=== PATIENT | female | born 1990 | race Caucasian/White ===

== ENCOUNTER 2024-04-19 08:34 | Outpatient (AMB) | payer OTHER, SELFPAY ==
[2024-04-19 08:37] VITALS: BP 110/62; PULSE 75; O2SAT 98; BMI 23.2
--- NOTE | 2024-04-19 08:37 | A.OFFVIS_ITS ---
Vital Signs 04/19/24 08:37 Height 5 ft 2 in Weight 126 lb 12.253 oz BMI 23.2 BP 110/62 Blood Pressure Location Lt brachial Position Sitting Pulse 75 Pulse Source Pulse Oximeter Pulse Oximetry (%) 98 Oxygen Delivery Method Room Air Intake Visit Reasons: //RECORDS RECEIVED Intake Note: Patient presents today for . Allergies Penicillins Allergy (Mild, Verified 04/19/24 08:39) Hives HPI Comments Details: Feels well. No flares. Endometrial bx revealed endometritis treated with 2 week course anx. She had repeat bx with results pending. Lab workup for infertility revealed protein S was mildly low. I reviewed patient's lab results on her phone, which only revealed lab results that were performed at [facility]. APS panel was not reported but patient reports that it was checked. Records from [facility] reviewed. 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 She was initially diagnosed with seropositive rheumatoid arthritis and was on hydroxychloroquine from 04/20/2022 03/20/2021. Her evaluation with me revealed clinical presentation of spondyloarthritis rather than rheumatoid arthritis. Due to patient's wishes of , she was started on sulfasalazine 12/18/2020 then Cimzia 03/20/2021. She has had recurrent loss x3 first-trimester and follows with fertility clinic in [place] (Dr. Melia Riddle). While on Cimzia she tested positive for lupus anticoagulant then negative when off of Cimzia for 3 months, which suggests that the positive antibody is drug-induced. Dr. Riddle is concerned that there may be a pathologic roll for the positive antibody contributing to recurrent miscarriage. They are considering trialing low-dose prednisone for 1st trimester then tapering off and changing low-dose aspirin to Lovenox for primary prevention of loss. Review of Systems Const All systems reviewed & are unremarkable except as noted in HPI and below Physical Exam Vital Signs: Last Vital Signs Pulse 75 04/19/24 08:37 BP 110/62 04/19/24 08:37 Pulse Ox 98 04/19/24 08:37 Oxygen Delivery Method Room Air 04/19/24 08:37 BMI result Body Mass Index 23.2 Const General: cooperative and healthy appearing Resp Auscultation: clear to auscultation bilaterally Cardio Rate: regular rate Rhythm: regular rhythm Heart sounds: S1 normal heart sound present and S2 normal heart sound present Assessment & Plan Assessment & Plan (1) Ankylosing spondylitis: Comment: Stable on current regimen. Endometrial biopsy results are pending to confirm if she has chronic endometritis. Patient is aware that she will be holding immunosuppressive therapies sulfasalazine and Cimzia if she is being treated for an infection with antibiotic. Code(s): M45.9 - Ankylosing spondylitis of unspecified sites in spine Category: Medical Plan: Continue cimzia month SC injection Continue SSZ 1500mg BID Requesting labs performed at [facility] last month for disease and drug monitoring Labs due in 2 months. Labs ordered. She will call insurance to find out if she is able to have labs at [facility]. In the past her insurance has required her to have labs done at [facility]. Return to clinic 3 months (2) Other skilled nursing (current) drug therapy: Code(s): Z79.899 - Other skilled nursing (current) drug therapy Category: Medical Plan: See above Plan . Orders: Orders Aspartate Amino Transferase 2 Months M45.9 - Ankylosing spondylitis of unspecified sites in spine, Z79.01 - penitentiary (current) use of anticoagulants C Reactive Protein 2 Months M45.9 - Ankylosing spondylitis of unspecified sites in spine, Z79.01 - shower enclosure installer (current) use of anticoagulants Creatinine 2 Months M45.9 - Ankylosing spondylitis of unspecified sites in spine, Z79.01 - shower enclosure installer (current) use of anticoagulants Erythrocyte Sedimentation Rate 2 Months M45.9 - Ankylosing spondylitis of unspecified sites in spine, Z79.01 - penitentiary (current) use of anticoagulants Hepatitis B,C Profile 2 Months M45.9 - Ankylosing spondylitis of unspecified sites in spine, Z79.01 - penitentiary (current) use of anticoagulants T Spot TB 2 Months M45.9 - Ankylosing spondylitis of unspecified sites in spine, Z79.01 - penitentiary (current) use of anticoagulants Alanine Aminotransferase 2 Months M45.9 - Ankylosing spondylitis of unspecified sites in spine, Z79.01 - shower enclosure installer (current) use of anticoagulants Complete Blood Count Auto Diff 2 Months M45.9 - Ankylosing spondylitis of unspecified sites in spine, Z79.01 - shower enclosure installer (current) use of anticoagulants Medications: New certolizumab pegol (Cimzia) administer as 2 equally divided doses at 2 different sites in abdomen or thigh 400 mg (2 mL) subcut Q4W 1 ea 2RF Coding Level of Care Code Est Pt Level 4 (78922) Complex EM visit Add On G2211 Diagnoses Ankylosing spondylitis M45.9 Other associate dean (current) drug therapy Z79.899
== END 2024-04-19 09:16 | disposition home or self-care (01) ==
PROVIDERS: PCP Internal Medicine; Visit Provider Internal Medicine Rheumatology
DX: M45.9 Ankylosing spondylitis of unspecified sites in spine (principal); Z79.899 Other long term (current) drug therapy
CPT/HCPCS: 99214

== ENCOUNTER → 2024-04-19 08:34 | Outpatient (BNVA) | payer OTHER, SELFPAY | PROVIDERS: PCP Internal Medicine; Visit Provider Internal Medicine Rheumatology | DX: M45.9 Ankylosing spondylitis of unspecified sites in spine (principal); Z79.899 Other long term (current) drug therapy | CPT/HCPCS: 99212 ==

== ENCOUNTER 2024-07-27 13:16 | Outpatient (AMB) | payer OTHER, SELFPAY ==
--- NOTE | 2024-07-27 13:20 | MHC.OFFVIS ---
Vital Signs 07/27/24 13:21 Height 5 ft 2 in Weight 125 lb 7.088 oz BMI 22.9 BP 98/70 Blood Pressure Location Lt brachial Position Sitting Pulse 79 Pulse Source Pulse Oximeter Pulse Oximetry (%) 98 Oxygen Delivery Method Room Air Intake Visit Reasons: follow up 3mon Intake Note: Patient presents for follow up. Allergies Penicillins Allergy (Mild, Verified 07/27/24 13:21) Hives HPI HPI follow up 3mon: Details: She is doing well. No morning stiffness. No recent infections. Review of Systems Const All systems reviewed & are unremarkable except as noted in HPI and below Physical Exam Vital Signs: Last Vital Signs Pulse 79 07/27/24 13:21 BP 98/70 07/27/24 13:21 Pulse Ox 98 07/27/24 13:21 Oxygen Delivery Method Room Air 07/27/24 13:21 BMI result Body Mass Index 22.9 Const Other: General: Comfortable CVS: RRR Respiratory: clear to auscultation bilaterally. Good respiratory effort Skin: No lesions seen MSK: No tenderness of any joint. No synovitis. Good biofuels technology manager strength. Good range of motion of upper extremities and lower extremities. Assessment & Plan Assessment & Plan (1) Ankylosing spondylitis: Comment: Stable on current regimen. Rheumatology history: HLA B27 positive. 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 Sulfasalazine started November 2020 to present. Cimzia started March 2021. She was initially diagnosed with seropositive rheumatoid arthritis. She was then placed on hydroxychloroquine April 2022 to March 2021 discontinued due to ineffectiveness and switch to Cimzia. 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 She had 10 month history of right buttocks pain in 2018 that self resolved. Later patient was found to have sacroiliitis right side with erosions on imaging. She has had positive lupus anticoagulant while on Cimzia, which was negative including rest of APLS panel when it was retested off of Cimzia confirming positive lupus anticoagulant was likely drug-induced (known side effect). When Cimzia was on hold for testing of lupus anticoagulant, she had flare-up of inflammatory back pain with elevated inflammatory markers responsive to prednisone course. 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 She has had a total of 3 negative lupus anticoagulant tests. Code(s): M45.9 - Ankylosing spondylitis of unspecified sites in spine Category: Medical Qualifiers: Ankylosing spondylitis location: sacral region Qualified Code(s): M45.8 - Ankylosing spondylitis sacral and sacrococcygeal region Plan: Continue cimzia month SC injection Continue SSZ 1500mg BID Labs for drug monitoring on high-risk medication up-to-date from June 2024. Labs for drug monitoring on high-risk medication are due every 3 months. Insurance requirement for labs to be done at [facility]. Patient has lab requisition. 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 Coding Level of Care Code Est Pt Level 5 (00303) Complex EM visit Add On G2211 Diagnoses Ankylosing spondylitis of sacral region M45.8 Ankylosing spondylitis location: sacral region Other equipment operator intermodal yard (current) drug therapy Z79.899 Time Spent (min) 40
[2024-07-27 13:21] VITALS: BP 98/70; PULSE 79; O2SAT 98; BMI 22.9
--- OUTSIDE RECORDS SUMMARY | 2024-07-27 16:16 | XMS_ITS | Continuity of Care Document ---
Author Organization [facility] Address [address] [place] [id number]- Care Team Providers Care Bottle Packer Name Role Phone Katy JenSunshine franco DO Primary Care Cipriano stout Encounter [facility] Date(s): 06/21/24 - 07/21/24 [facility] [address] [place] [id number] Attending Physician: Zandra Epstein Admitting Physician: Zandra Epstein Referring Physician: Zandra Epstein Encounter Type: Triage Allergies, Adverse Reactions, Alerts Substance Criticality Severity Reaction Reaction Severity Status penicillin Hives Active Medications aspirin 81 mg oral capsule 1 capsule = 81 mg, By Mouth, Every 24 hours, 0 Refills, Maintenance, 12/02/23 3:39:00 PM EDT, Partialfill upon patient request if the prescription is for a schedule II opioid drug. Start Date: 12/02/23 Status: Ordered Repeat number: 1 Cimzia 200 mg subcutaneous kit = 400 mg, Subcutaneous Infusion, 0 Refills, Maintenance, 09/08/22 6:40:00 AM EDT, Partial fill upon patient request if the prescription is for a schedule II opioid drug. Start Date: 09/08/22 Status: Ordered Repeat number: 1 Keflex Capsule 500 mg, By Mouth, 2 times a day, Maintenance, 12/18/23 8:50:00 AM EDT Start Date: 12/18/23 Status: Ordered Repeat number: 1 SulfaSALAZINE = 1,500 mg, By Mouth, 2 times a day, 0 Refills, Maintenance, 09/08/22 6:39:00 AM EDT, Partial fill upon patient request if the prescription is for a schedule II opioid drug. Start Date: 09/08/22 Status: Ordered Repeat number: 1 Problem List Condition Confirmation Course Effective Dates Status Health St atus Informant Ankylosing spondylitis Confirmed Active Rh negative status during Confirmed Active Social History Social History Type Response Smoking Status Never (less than 100 in lifetime) entered on: 06/07/21 Sex Sex Representation Female (finding) Patient Care team information Care Team Personnel Name: Sunshine Barnes DO Position: [facility] Physician - Primary Care Member Role: PCP Address: [address] [place] [address] Telecom: Name: Aracelis Jimenez MD Position: [facility] LICENSED AUDIOLOGIST MD Member Role: Lifetime LICENSED AUDIOLOGIST Physician Address: [address] [place] [address] Women's Health LICENSED AUDIOLOGIST [address] Telecom: Care Team Related Persons Name: TAWNY CROOK Insurance Providers Guarantor name: ROVERTO CROOK Health Plan Information #: 1 Payer: ORAL [facility] PPO Member Number: NA Policy Number: NA Group Number: NA
== END 2024-07-27 13:59 | disposition home or self-care (01) ==
PROVIDERS: PCP Internal Medicine; Visit Provider Internal Medicine Rheumatology
DX: M45.8 Ankylosing spondylitis sacral and sacrococcygeal region (principal); Z79.899 Other long term (current) drug therapy
CPT/HCPCS: 99214

== ENCOUNTER 2024-10-18 10:21 | Outpatient (AMB) | payer OTHER, SELFPAY ==
--- NOTE | 2024-10-18 10:23 | MHC.OFFVIS ---
Vital Signs 10/18/24 10:24 Height 5 ft 2 in Weight 132 lb 11.492 oz BMI 24.3 BP 100/70 Blood Pressure Location Lt brachial Position Sitting Pulse 84 Pulse Source Pulse Oximeter Pulse Oximetry (%) 100 Oxygen Delivery Method Room Air Intake Visit Reasons: 3 Months Intake Note: Patient presents for follow up. Accompanied by: Self / Same As Patient Allergies Penicillins Allergy (Mild, Verified 10/18/24 10:23) Hives HPI HPI 3 Months: Details: She is 14 weeks . She sees OB at [facility] Dr. Maharaj. She is on lovenox for prophylaxis. Protein C was elevated in workup. OB communicated with Hematology. She was on prednisone 10mg for the first 12 weeks per recommendations of OB team in [place]. At this time she is not experiencing joint pain, stiffness or joint swelling. R SI joint is sore when working. It occurs when she gets up from seated position and walks. Self-limited. Physical Exam Vital Signs: Last Vital Signs Pulse 84 10/18/24 10:24 BP 100/70 10/18/24 10:24 Pulse Ox 100 10/18/24 10:24 Oxygen Delivery Method Room Air 10/18/24 10:24 BMI result Body Mass Index 24.3 Const Other: General: Comfortable CVS: RRR Respiratory: clear to auscultation bilaterally. Good respiratory effort Skin: No lesions seen MSK: No tenderness of any joint. No synovitis. 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 Good range of motion of upper extremities and lower extremities. Assessment & Plan Assessment & Plan (1) Ankylosing spondylitis: Comment: Stable on current regimen. She has intermittent right SI joint pain, self-limited. She is 14 weeks on Lovenox for prophylaxis. Rheumatology history: HLA B27 positive. 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 Sulfasalazine started November 2020 to present. Cimzia started March 2021. She was initially diagnosed with seropositive rheumatoid arthritis. She was then placed on hydroxychloroquine April 2022 to March 2021 discontinued due to ineffectiveness and switch to Cimzia. 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 She had 10 month history of right buttocks pain in 2019 that self resolved. Later patient was found to have sacroiliitis right side with erosions on imaging. She has had positive lupus anticoagulant while on Cimzia, which was negative including rest of APLS panel when it was retested off of Cimzia confirming positive lupus anticoagulant was likely drug-induced (known side effect). When Cimzia was on hold for testing of lupus anticoagulant, she had flare-up of inflammatory back pain with elevated inflammatory markers responsive to prednisone course. 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 She has had a total of 3 negative lupus anticoagulant tests. Code(s): M45.9 - Ankylosing spondylitis of unspecified sites in spine Category: Medical Qualifiers: Ankylosing spondylitis location: sacral region Qualified Code(s): M45.8 - Ankylosing spondylitis sacral and sacrococcygeal region Plan: Continue cimzia month SC injection Continue SSZ 1500mg BID Labs for drug monitoring on high-risk medication up-to-date from August 2024. Labs for drug monitoring on high-risk medication are due every 3 months. Insurance requirement for labs to be done at [facility]. Lab requisitions have been reprinted for patient. Return to clinic 3 months (2) Other intermediate (current) drug therapy: Code(s): Z79.899 - Other intermediate (current) drug therapy Category: Medical Plan: See above Plan . Coding Level of Care Code Est Pt Level 4 (04389) Complex EM visit Add On G2211 Diagnoses Ankylosing spondylitis of sacral region M45.8 Ankylosing spondylitis location: sacral region Other continuous churn buttermaker (current) drug therapy Z79.899
[2024-10-18 10:24] VITALS: BP 100/70; PULSE 84; O2SAT 100; BMI 24.3
--- OUTSIDE RECORDS SUMMARY | 2024-10-18 11:34 | XMS_ITS | Continuity of Care Document ---
Author Organization [facility] Address [address] [place] [address], [address] [place] [address]- Care Team Providers Care Prevention Rn Name Role Phone Sunshine Barnes DO Primary Care Cipriano stout [id number] [employer] [address], [address] [place], [place] [address] Attending Physician: Aracelis Jimenez MD Referring Physician: Bhaskar Bergeron MD Encounter Type: Office Visit Allergies, Adverse Reactions, Alerts Substance Criticality Severity Reaction Reaction Severity Status penicillin Hives Active Medications Cimzia 200 mg subcutaneous kit = 400 mg, Subcutaneous Infusion, 0 Refills, Maintenance, 09/08/22 6:40:00 AM EDT, Partial fill upon patient request if the prescription is for a schedule II opioid drug. Start Date: 09/08/22 Status: Ordered Repeat number: 1 Lovenox 40 mg/0.4 mL injectable solution = 40 mg, Subcutaneous Injection, Daily, for 30 days, # 30 each, 6 Refills, Acute 05/05/25 1:30:00 PMEST, 10/07/24 1:30:00 PM EDT, [facility], Partial fill upon patient request if the prescription is for a schedule II opioid drug., 157, cm, 10/07/24 13:18:00 EDT, Height, 59.7, kg, 10/07/24 13:18:00 EDT, Dry Weight Start Date: 10/07/24 Stop Date: 05/05/25 Status: Ordered Quantity: 30.0 Unit: each Repeat number: 7 SulfaSALAZINE = 1,500 mg, By Mouth, 2 times a day, 0 Refills, Maintenance, 09/08/22 6:39:00 AM EDT, Partial fill upon patient request if the prescription is for a schedule II opioid drug. Start Date: 09/08/22 Status: Ordered Repeat number: 1 Problem List Condition Confirmation Course Effective Dates Status Health St atus Informant Penicillin allergy Confirmed Active Ankylosing spondylitis Confirmed Active resulting from assisted conception Confirmed Active Protein S deficiency Confirmed Active Rh negative status during Confirmed Active Vital Signs Most recent to oldest [Reference Range]: 1 Height 157 cm (10/07/24 1:18 PM) Weight 59.7 kg (10/07/24 1:18 PM) Body Mass Index [18.5-24.99 kg/m2] 24.22 kg/m2 (10/07/24 1:18 PM) Blood Pressure [90-138/55-84 mm Hg] 109/ 63mm Hg (10/07/24 1:18 PM) Blood pressure sites Arm, right (10/07/24 1:18 PM) Dry Weight 59.7 kg (10/07/24 1:18 PM) Weight Obtained Via Standing scale (10/07/24 1:18 PM) Dry Weight Obtained Via Standing scale (10/07/24 1:18 PM) Social History Social History Type Response Smoking Status Never (less than 100 in lifetime) entered on: 09/07/24 Sex Sex Representation Female (finding) Patient Care team information Care Team Personnel Name: Sunshine Barnes DO Position: [facility] Physician - Primary Care Member Role: PCP Address: [address] [place] [id number] [place] Telecom: Name: Aracelis Jimenez MD Position: [facility] MANAGER AGRICULTURAL Member Role: Lifetime MANAGER AGRICULTURAL Physician Address: [address] [place] [address] Women's [facility] [place] [address] YQ Telecom: Care Team Related Persons Name: TAWNY CROOK Insurance Providers Guarantor name: ROVERTO CROOK Health Plan Information #: 1 Payer: ORAL [facility] PPO Member Number: [id number] Policy Number: NA Group Number: [id number] Health Plan Information #: 2 Payer: ORAL [place] PPO Member Number: [id number] Policy Number: NA Group Number: [id number]
== END 2024-10-18 11:17 | disposition home or self-care (01) ==
LOC: HO.RHES 10:22
PROVIDERS: PCP Internal Medicine; Visit Provider Internal Medicine Rheumatology
DX: M45.8 Ankylosing spondylitis sacral and sacrococcygeal region (principal); Z79.899 Other long term (current) drug therapy
CPT/HCPCS: 99214

== ENCOUNTER 2024-12-20 14:32 | Outpatient (AMB) | payer OTHER, SELFPAY ==
--- NOTE | 2024-12-20 14:35 | A.OFFVIS_ITS ---
Vital Signs 12/20/24 14:36 Height 5 ft 2 in Weight 141 lb BMI 25.8 BP 100/60 Blood Pressure Location Lt brachial Position Sitting Pulse 96 Pulse Source Pulse Oximeter Pulse Oximetry (%) 99 Oxygen Delivery Method Room Air Intake Visit Reasons: Per MD Intake Note: Patient presents for follow up. Left hip and lower back for the past 5-6 days. Accompanied by: Self / Same As Patient Allergies Penicillins Allergy (Mild, Verified 12/20/24 14:43) Hives HPI HPI Per MD: Details: Last week she started experiencing increased left SI joint pain. Lying down on her left side or prolonged sitting causes increased pain on left buttocks region. She had to call off work today. 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 After a shift she has increased fatigue and pain. Last week she was on vacation and spent time sitting on be chairs. She also spent 5 [address] to [place]. Physical Exam Vital Signs: Last Vital Signs Pulse 96 12/20/24 14:36 BP 100/60 12/20/24 14:36 Pulse Ox 99 12/20/24 14:36 Oxygen Delivery Method Room Air 12/20/24 14:36 BMI result Body Mass Index 25.8 Const Other: General: Comfortable CVS: RRR Respiratory: clear to auscultation bilaterally. Good respiratory effort Skin: No lesions seen MSK: Left SI joint tenderness on palpation. Positive NEO left side. No synovitis. Normal range of motion of upper extremity and lower extremities. Assessment & Plan Assessment & Plan (1) Ankylosing spondylitis: Comment: She is 23 weeks . Due date in April. She is experiencing left SI joint pain due to exacerbation of ankylosing spondylitis. She received 10 weeks of prednisone 10 mg daily during 1st trimester. We discussed risks of long-term prednisone to the fetus including and decrease weight. I discussed the benefits of short course of prednisone prior to next dose of Cimzia being due. She agrees with plan. If she has recurrence of SI joint pain, I will consider redosing Cimzia 200 mg to every 14 days versus ultrasound- guided SI joint injection (Dr. Love or [facility] pain management per insurance requirement). Patient will discuss reducing her total shift hours from 12 hours to 8 hours with her department, which I support. Rheumatology history: HLA B27 positive. 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 Sulfasalazine started November 2020 to present. Cimzia started March 2021. She was initially diagnosed with seropositive rheumatoid arthritis. She was then placed on hydroxychloroquine April 2022 to March 2021 discontinued due to ineffectiveness and switch to Cimzia. 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 She had 10 month history of right buttocks pain in 2019 that self resolved. Later patient was found to have sacroiliitis right side with erosions on imaging. She has had positive lupus anticoagulant while on Cimzia, which was negative including rest of APLS panel when it was retested off of Cimzia confirming positive lupus anticoagulant was likely drug-induced (known side effect). When Cimzia was on hold for testing of lupus anticoagulant, she had flare-up of inflammatory back pain with elevated inflammatory markers responsive to prednisone course. 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 She has had a total of 3 negative lupus anticoagulant tests. Code(s): M45.9 - Ankylosing spondylitis of unspecified sites in spine Category: Medical Qualifiers: Ankylosing spondylitis location: sacral region Qualified Code(s): M45.8 - Ankylosing spondylitis sacral and sacrococcygeal region Plan: Prednisone course prescribed Continue cimzia month SC injection Continue SSZ 1500mg BID I have requested her to have labs for disease and drug monitoring on high-risk medication done after this visit. Insurance requirement for labs to be done at [facility]. Patient will call office if she needs a letter to support reducing her hours Return to clinic 3 months (2) Other nursing home (current) drug therapy: Code(s): Z79.899 - Other superintendent marine oil terminal (current) drug therapy Category: Medical Plan: See above Plan . Medications: New prednisone Take 4 tablets daily 3 days, 3 tablets daily 2 days, 2 tablets daily 2 days, 1 tablet daily 2 days then stop. Take prednisone with food. 5 mg PO DIRECTED 24 tabs 0RF Coding Level of Care Code Est Pt Level 4 (68722) Complex EM visit Add On G2211 Diagnoses Ankylosing spondylitis of sacral region M45.8 Ankylosing spondylitis location: sacral region Other superintendent marine oil terminal (current) drug therapy Z79.899 Time Spent (min) 30
[2024-12-20 14:36] VITALS: BP 100/60; PULSE 96; O2SAT 99; BMI 25.8
--- OUTSIDE RECORDS SUMMARY | 2024-12-20 15:46 | XMS_ITS | Encounter Summary ---
Author Organization [facility] Address [address] [place] [address] [place] [address] Phone Care Team Providers Care Deadener Name Role Phone Bell Tristan DO Primary Care Provider + Nafisa Cadena MD Primary Care Provider Nafisa Cadena MD Primary Care Provider Unknown, Unknown Primary Care Provider Jinai Nafisa Amor MD Unavailable [phone] Pcp, Unknown Unavailable Unavailable Encounter Details Date Type Department Care Team (Late st Contact Info) Description 08/01/2016 Transcribe Orders [facility] [address] [facility], [address] [place] [address] Natalie Dawson MD [address] [place] [address] [email or web address] Social History Tobacco Use Types Packs/Day Years Used Date Smoking Tobacco: Never Comments No Sex and Gender Information Value Date Recorded Sex Assigned at Female 04/07/2020 3:17 PM EST Legal Sex Female 1:02 AM EST Gender Identity Female 04/07/2020 3:17 PM EST Sexual Orientation Not on file documented as of this encounter Plan of Treatment Not on file documented as of this encounter Visit Diagnoses Not on filedocumented in this encounter Care Teams Deadener Relationship Specialty Start Date End Date Bell Tristan DO [email or web address] PCP - General Internal Medicine 11/19/1504/01 Nafisa Cadena MD [address] [place] [address] PCP - General Internal Medicine 04/20/17 03/28/18 Nafisa Cadena MD [address] [place] [address] PCP - General Internal Medicine 03/29/18 04/07/24 Unknown, Unknown, MD PCP - General 04/08/24 Nafisa Cadena MD [address] [address] Internal Medicine 04/08/24 Pcp, Unknown 11/19/15 documented as of this encounter Additional Source Comments The information contained in this document represents components of the legal health record. It is not the complete legal health record.[facility]
== END 2024-12-20 15:18 | disposition home or self-care (01) ==
LOC: HO.RHES 14:33
PROVIDERS: PCP Internal Medicine; Visit Provider Internal Medicine Rheumatology
DX: M45.8 Ankylosing spondylitis sacral and sacrococcygeal region (principal); Z79.899 Other long term (current) drug therapy
CPT/HCPCS: 99214; G2211

== ENCOUNTER 2025-03-23 13:16 | Outpatient (AMB) | payer OTHER, SELFPAY ==
[2025-03-23 13:21] VITALS: BP 90/70; PULSE 80; O2SAT 98; BMI 28.4
--- NOTE | 2025-03-23 13:21 | MHC.OFFVIS ---
Vital Signs 03/23/25 13:21 Height 5 ft 2 in Weight 155 lb 3.287 oz BMI 28.4 BP 90/70 Blood Pressure Location Lt brachial Position Sitting Pulse 80 Pulse Source Pulse Oximeter Pulse Oximetry (%) 98 Oxygen Delivery Method Room Air Intake Visit Reasons: 3 months f/u Intake Note: Patient presents for follow up. Accompanied by: Self / Same As Patient Allergies Penicillins Allergy (Mild, Verified 03/23/25 13:21) Hives HPI HPI 3 months f/u: Details: She feels well. Sometimes she has left-sided SI joint pain when she is lying down on that side. No new joint swelling. Hand numbness in the morning or at night is new for her. Physical Exam Vital Signs: Last Vital Signs Pulse 80 03/23/25 13:21 BP 90/70 03/23/25 13:21 Pulse Ox 98 03/23/25 13:21 Oxygen Delivery Method Room Air 03/23/25 13:21 BMI result Body Mass Index 28.4 Const Other: General: Comfortable CVS: RRR Respiratory: clear to auscultation bilaterally. Good respiratory effort Skin: No lesions seen MSK: No synovitis. Normal range of motion of upper extremity and lower extremities. Assessment & Plan Assessment & Plan (1) Ankylosing spondylitis: Comment: She is 37 weeks . Left SI joint pain due to exacerbation of ankylosing spondylitis resolved with prednisone dose. We reviewed literature about her current treatment plan and , which is safe to continue with . She will monitor for infections post delivery in her baby due to risk of immunosuppression through antibody transfer in breast milk. Rheumatology history: HLA B27 positive. 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 Sulfasalazine started November 2020 to present. Cimzia started March 2021. She was initially diagnosed with seropositive rheumatoid arthritis. She was then placed on hydroxychloroquine April 2022 to March 2021 discontinued due to ineffectiveness and switch to Cimzia. 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 She had 10 month history of right buttocks pain in 2018 that self resolved. Later patient was found to have sacroiliitis right side with erosions on imaging. She has had positive lupus anticoagulant while on Cimzia, which was negative including rest of APLS panel when it was retested off of Cimzia confirming positive lupus anticoagulant was likely drug-induced (known side effect). When Cimzia was on hold for testing of lupus anticoagulant, she had flare-up of inflammatory back pain with elevated inflammatory markers responsive to prednisone course. 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 She has had a total of 3 negative lupus anticoagulant tests. Code(s): M45.9 - Ankylosing spondylitis of unspecified sites in spine Category: Medical Qualifiers: Ankylosing spondylitis location: sacral region Qualified Code(s): M45.8 - Ankylosing spondylitis sacral and sacrococcygeal region Plan: Continue cimzia month SC injection Continue SSZ 1500mg BID Labs for drug monitoring on high-risk medication due. Patient requires labs to be done at [facility] per insurance requirement Return to clinic 3 months (2) Other superintendent terminal (current) drug therapy: Code(s): Z79.899 - Other superintendent terminal (current) drug therapy Category: Medical Plan: See above Plan . Coding Level of Care Code Est Pt Level 4 (81642) Complex EM visit Add On G2211 Diagnoses Ankylosing spondylitis of sacral region M45.8 Ankylosing spondylitis location: sacral region Other longterm (current) drug therapy Z79.899
--- OUTSIDE RECORDS SUMMARY | 2025-03-23 16:46 | XMS_ITS | Clinical Summary ---
Author Organization [facility] Address [address] [address] Phone Care Team Providers Care Recyclable Products Sorter Name Role Phone Unknown, Unknown Primary Care Provider Nafisa Nick MD Unavailable [phone] Pcp, Unknown Unavailable Unavailable Allergies Active Allergy Reactions Criticality Noted Date Comments Amoxicillin Unknown 11/26/2010 Medications Ca cit-D3-mag#11-zinc -[id number]-ixo-ipa (CALTRATE 600+D) 600 mg calcium- 800 unit-50 mg Tab Take 1 tablet by mouth daily. Active hydrOXYchloroQUINE (PLAQUENIL) 200 mg tablet Take 1 tablet (200 mg total) by mouth daily. 90 tablet 1 1 Active JUNEL 1.5/30, 21, 1.5-30 mg-mcg TabIndications:Enc ounter for contraceptive management TAKE 1 TABLET BY MOUTH EVERY DAY 21 tablet 3 1 Active Active Problems Problem Noted Date Diagnosed Date ASCUS with positive high risk HPV cervical 05/17 FH: breast cancer in relative when <45 years old 04/26/2018 Overview (04/26/2018): MGM with breast CA at 46, maunt with breast ca at 40, mat cousin with breast ca and was brca neg Oligomenorrhea 04/21/2017 Overview (04/21/2017): Stopped ocp when she broke up with her boyfriend 1 year ago and then went 6 mos without a period before jump start with provera withdrawal. No recurrence of heavy bleeding which is why she went on the pill at age 19. No past h/o oligomenorrhea but now with being off pill is having irregular cycles with longest time between periods 2 months. History of menorrhagia 11/19/2015 Overview (04/21/2017): Well controlled on ocp in the past. Started pill at 19 for super heavy periods. Varicella 11/26/2010 Overview (07/22/2014): Chicken pox; had as a child, not immunized Resolved Problems Problem Noted Date Diagnosed Date Resolved Date Vulvar irritation 04/21/2017 05/11/2020 Overview (04/21/2017): Has had intermittently in last year, negative hsv swab 10/2015, good relief with otc hc, no focal lesions at 04/2017 yearly. Wearing cotton underwear, to call if worsening sx, benign exam today. Uncoded 11/26/2010 11/19/2015 Overview (07/22/2014): Immunizations Immunization Administration Dates Next Due COVID-19 (Pre-03/23) Pfizer Vaccine, mRNA, PF 06/21/2020,05/30/2020 HPV,quadrivalent 02/24/2007,10/05/2006, 7 Influenza Nasal, Unspecified Formulation 015 Influenza Quadrivalent Preservative Free IM 01/31 Influenza, Unspecified Formulation 06/01/2012, MMR 05/31/1997,11/28/1993 Family History Medical History Relation Comments Breast cancer Maternal Aunt breast cancer Breast cancer Maternal Grandmother of dis ease at young age Breast cancer Paternal Grandmother hrt at damir g age due to hyst, of lung cancer at 74 Lung cancer Paternal Grandmother smoker, d of disease Colon cancer Neg Hx Ovarian cancer Neg Hx Relation Status Comments Maternal Aunt Maternal Grandmother Mother Alive Paternal Grandmother Social History Tobacco Use Types Packs/Day Years Used Date Smoking Tobacco: Never Smokeless Tobacco: Never Tobacco Cessation:Counseling Given: No Alcohol Use Standard Drinks/Week Comments Yes 0 (1 standard drink = 0.6 oz pur e alcohol) Education Answer Date Recorded Are you interested in more education? Not on destiney e 09/26/2022 Are you concerned about learning? Not on file 09/26/2022 No 09/26/2022 No 09/26/2022 Digital Access Answer Date Recorded No 10/27/2022 No 10/27/2022 Reliable internet access at home? Not on file 10/27/2022 Device with a working camera? Not on file Comments No Sex and Gender Information Value Date Recorded Sex Assigned at Female 04/07/2020 3:17 PM EST Legal Sex Female 1:02 AM EST Gender Identity Female 04/07/2020 3:17 PM EST Sexual Orientation Not on file Last Filed Vital Signs Vital Sign Reading Time Taken Comments Blood Pressure 120/82 07/17/2020 10:40 AM EST Pulse 104 07/17/2020 10:40 AM EST Temperature 36.2 C (97.2 F) 07/17/2020 10:40 AM EST Respiratory Rate - - Oxygen Saturation 99% 05/17/2019 8:32 AM EST Inhaled Oxygen Concentration - - Weight 53.1 kg (117 lb) 07/17/2020 10:40 AM EST Height 157.5 cm (5' 2 ) 05/11/2020 2:02 PM EST Body Mass Index 21.4 05/11/2020 2:02 PM EST Plan of Treatment Health Maintenance Due Date Last Done Comments DEPRESSION SCREENING 2004 HEPATITIS C SCREENING 2010 HIV ONE-TIME SCREENING (18-65 YEARS) 2010 PAP SMEAR 05/11/2022 05/11/2020, 05/01, 05/03/2019, Additional history exists INFLUENZA VACCINE (#1) 2024 , 02/06/2021, 03/05/2020, Additional history exists COVID-19 VACCINE ( season) 2025 03/10/2022, 02/26/2021, 06/21/2020, Additional history exists Adult Td,Tdap Booster 07/09/2030 07/09/2020 MENINGOCOCCAL VACCINES (ACWY) Aged Out 11/11/2010, 08/05/2006 No longer eligibl e based on patient's age to complete this topic HEPATITIS A VACCINES Aged Out 11/29/2013 No long er eligible based on patient's age to complete this topic HIB VACCINES Completed 04/14/2017, 10/01, 01/29/1993, Additional history exists SMOKING STATUS SCREENING (Once After 26 Yrs) Completed 07/17/2020 PNEUMOCOCCAL VACCINES (0-49 years) Aged Out 07/24/2022, 05/16/2021 No longer eligibl e based on patient's age to complete this topic MENINGOCOCCAL VACCINES (B) Aged Out N o longer eligible based on patient's age to complete this topic Medical Devices Not on file Procedures Procedure Name Priority Date/Time Associated Diagnosis Comments PAP TEST Routine 05/11/2020 12:00 AM EST from Last 3 Months or Most Recently Relevant to Health Maintenance Results * Pap Smear (05/11/2020 12:00 AM EST) 05/11/2020 05/14/2020 12: 11 PM EST Narrative SEE NARRATIVE - 05/21/2020 7:37 AM EST [facility] [address] [place] [address] SUPERVISOR [employer]YING [employer] WINDING Cytology Report FINAL DIAGNOSIS A. CERVICAL, LIQUID BASED SPECIMEN: SPECIMEN ADEQUACY: Satisfactory for evaluation; transformation zone present. INTERPRETATION: NEGATIVE FOR INTRAEPITHELIAL LESION OR MALIGNANCY. This specimen was analyzed by the automated ThinPrep Imaging System ([employer] and manually rescreened by a lumber puller and/or pathologist. Electronically Signed Out By: CHUY Price(ASCP) CHUY Whittaker(ASCP) Cervical cytology is a screening test primarily for squamous cancers and precursors and has associated false-negative and false-positive results. New technologies such as liquid-based preparations may decrease but will not eliminate all false-negative results. Regular sampling and follow-up of unexplained clinical signs and symptoms are recommended to minimize false negative results. Interpretation of this material was performed at: [facility], Department of Pathology [address] [place] [id number] Senior Designer: Irvin Schneider M.D. CLINICAL HISTORY Date of Last Menstrual Period: 05/08/20 Contraceptive History: OCPs Treatment History: Hormone Therapy Other Clinical Conditions: Routine SPECIMEN SOURCE A: CERVICAL, LIQUID BASED SPECIMEN GROSS DESCRIPTION One ThinPrep vial received. Patient Name: ROVERTO GUTHRIE : 1990 (Age: 29) Sex: F Institution: [facility] Location: [facility] Date of Collection: 05/11/2020 Date of Reported: 05/21/2020 07:37 Results to: Natalie Dawson MD us Natalie Dawson MD CYTOLOGY ORDERABLES Final Resul t SEE NARRATIVE from Last 3 Months or Most Recently Relevant to Health [place] [address] [facility] [place] [address] [facility] Member Subscriber Plan / Payer (Ef fective 2020-) Name:Roverto Newell Relation to Subscriber:Self Name:Roverto Newell Payer ID:Not on file Type:PPO Address: [address] [facility] Member Subscriber Plan / Payer (Ef fective 2020-) Name:Roverto Newell Relation to Subscriber:Self Name:Roverto Newell Payer ID:Not on file Type:PPO Address: [address] [facility] Member Subscriber Plan / Payer (Ef fective 2020-Present) Name:Roverto Newell Relation to Subscriber:Self Name:Roverto Newell Payer ID:Not on file Type:PPO Address: [address] [facility] Member Subscriber Plan / Payer (Ef fective 2020-Present) Name:Roverto Newell Relation to Subscriber:Self Name:Roverto Newell Payer ID:Not on file Type:PPO Address: [address] [facility] Care Teams Recyclable Products Sorter Relationship Specialty Start Date End Date Unknown, Unknown, MD PCP - General 04/08/24 Nafisa Cadena MD [address] [place] [id number] Internal Medicine 04/08/24 Pcp, Unknown 11/19/15 Additional Source Comments The information contained in this document represents components of the legal health record. It is not the complete legal health record.[facility]
--- OUTSIDE RECORDS SUMMARY | 2025-03-23 16:46 | XMS_ITS | Encounter Summary ---
Author Organization [facility] Address [address] [place] [address] [place] [address] Phone Care Team Providers Care Grain Wafer Machine Operator Name Role Phone Bell Tristan DO Primary Care Provider + Nafisa Cadena MD Primary Care Provider Nafisa Cadena MD Primary Care Provider Unknown, Unknown Primary Care Provider Unavai Nafisa Amor MD Unavailable [phone] Pcp, Unknown Unavailable Unavailable Encounter Details Date Type Department Care Team (Late st Contact Info) Description 08/01/2016 Transcribe Orders [facility] [address] [facility], [address] [place] [address] Natalie Dawson MD [email or web address] Social History Tobacco Use Types Packs/Day Years [...] on filedocumented in this encounter Care Teams Grain Wafer Machine Operator Relationship Specialty Start Date End Date Bell Tristan DO [email or web address] PCP - General Internal Medicine 11/19/1504/01 Nafisa Cadena MD [address] [facility] [address] [place] [id number] PCP - General Internal Medicine 04/20/17 03/28/18 Nafisa Cadena MD [address] [facility] [address] [place] [address] PCP - General Internal Medicine 03/29/18 04/07/24 Unknown, Unknown, PCP - General 04/08/24 Nafisa Cadena MD [address] [facility] [address] [place] [address] Internal Medicine 04/08/24 Pcp, Unknown 11/19/15 documented as of this encounter Additional Source Comments The information contained in this document represents components of the legal health record. It is not the complete legal health record.[facility]
--- OUTSIDE RECORDS SUMMARY | 2025-03-23 16:46 | XMS_ITS | Encounter Summary ---
Author Organization [facility] Address [address] [place] [address] Phone Care Team Providers Care Meter/Relay Technician Name Role Phone Nafisa Cadena MD Primary Care Provider Unknown, Unknown Primary Care Provider Nafisa Nick MD Unavailable [phone] Pcp, Unknown Unavailable Unavailable Encounter Details Date Type Department Care Team (Late st Contact Info) Description 04/10/2020 Transcribe Orders [facility] [address] [place], [place] [id number] Idalia Valdivia MD [address] [place] [address] [email or web address] Social History Tobacco Use Types Packs/Day Years Used Date Smoking Tobacco: Never Smokeless Tobacco: Never Alcohol Use Standard Drinks/Week Comments Yes 0 (1 standard drink = 0.6 oz pur e alcohol) Comments No Sex and Gender Information Value Date Recorded Sex Assigned at Female 04/07/2020 3:17 PM EST Legal Sex Female 1:02 AM EST Gender Identity Female 04/07/2020 3:17 PM EST Sexual Orientation Not on file documented as of this encounter Plan of Treatment Not on file documented as of this encounter Visit Diagnoses Not on filedocumented in this encounter Care Teams Meter/Relay Technician Relationship Specialty Start Date End Date Nafisa Cadena MD [address] [address] PCP - General Internal Medicine 03/29/18 04/07/24 Unknown, Unknown, MD PCP - General 04/08/24 Nafisa Cadena MD [address] [address] Internal Medicine 04/08/24 Pcp, Unknown 11/19/15 documented as of this encounter Additional Source Comments The information contained in this document represents components of the legal health record. It is not the complete legal health record.[facility]
== END 2025-03-23 13:59 | disposition home or self-care (01) ==
LOC: HO.RHES 13:17
PROVIDERS: PCP Internal Medicine; Visit Provider Internal Medicine Rheumatology
DX: M45.8 Ankylosing spondylitis sacral and sacrococcygeal region (principal); Z79.899 Other long term (current) drug therapy
CPT/HCPCS: 99214; G2211